=== PATIENT | male | born 2005 | race Caucasian/White ===

== ENCOUNTER 2023-05-01 21:04 | Observation (INO) | payer OTHER, SELFPAY ==
[2023-05-01 23:02] LABS: #Eosinphils 0.2 10x3/uL (0.0-0.5); #Neutrophils 7.3 10x3/uL (1.5-8.4); %Basophils 0.3 % (0.0-2.0); %Eosinophils 1.5 % (0.0-6.0); %Lymphocytes 22.7 % (18.0-47.0); %Monocytes 8.7 % (0.0-10.0); %Neutrophils 66.5 % (40.0-75.0); Hematocrit 39.1 % (38.8-50.0); Mean Corpuscular HGB CONC 33.2 g/dL (32.0-36.0); Mean Corpuscular Hemoglobin 27.8 pg (27.0-33.0); Mean Corpuscular Volume 83.5 fl (81.2-95.1); Mean Platelet Volume 10.6 fl (7.4-10.4); Platelet Count 347 10x3/uL (150-450); RBC Distribution Width 13.2 % (11.5-14.5); Red Blood Cell (RBC) Count 4.68 10x6/uL (4.32-5.72)
[2023-05-01 23:11] LABS: ALT (SGPT) 62 U/L (8-55); AST (SGOT) 34 U/L (10-45); Albumin 4.3 g/dL (3.5-5.0); Alkaline Phosphatase 98 U/L (50-130); Anion Gap 15 mmol/L (10-20); BUN (Urea Nitrogen) 12 mg/dL (8.4-21.0); Bilirubin, Total 0.7 mg/dL (0.2-1.2); Calc. Creatinine Clearance 0 mL/min (70-130); Calcium 9.7 mg/dL (7.8-10.44); Carbon Dioxide 23 mmol/L (22-29); Chloride 105 mmol/L (98-107); Estimated GFR 128; Glucose 95 mg/dL (70-105); Potassium 4.4 mmol/L (3.5-5.1); Protein, Total 8.3 g/dL (6.0-8.3); Sodium 139 mmol/L (136-145)
[2023-05-01 23:22] LABS: INR-International Normal Ratio 1.1; PTT 27.7 sec (22.0-33.0); Prothrombin Time 11.4 sec (9.5-12.1)
[2023-05-01] MEDS ORDERED: Cefepime 2 GM VIAL ONE (23:57)
[2023-05-02] MEDS ORDERED: Acetaminophen 325 MG TAB PO PRN (03:13)
[2023-05-02] MEDS ORDERED: Sodium Chloride 0.9% 1,000 ML IV SCH (03:15)
[2023-05-02 04:50] VITALS: BMI 39.5
[2023-05-02 06:14] LABS: #Eosinphils 0.2 10x3/uL (0.0-0.5); #Monocytes 0.9 10x3/uL (0.0-1.1); #Neutrophils 5.8 10x3/uL (1.5-8.4); %Basophils 0.3 % (0.0-2.0); %Eosinophils 1.9 % (0.0-6.0); %Lymphocytes 29.1 % (18.0-47.0); %Monocytes 9.5 % (0.0-10.0); %Neutrophils 58.9 % (40.0-75.0); Hematocrit 36.3 % (38.8-50.0); Hemoglobin 11.8 g/dL (13.5-17.5); Mean Corpuscular HGB CONC 32.5 g/dL (32.0-36.0); Mean Corpuscular Hemoglobin 27.4 pg (27.0-33.0); Mean Corpuscular Volume 84.2 fl (81.2-95.1); Mean Platelet Volume 10.5 fl (7.4-10.4); Platelet Count 330 10x3/uL (150-450); RBC Distribution Width 13.2 % (11.5-14.5); Red Blood Cell (RBC) Count 4.31 10x6/uL (4.32-5.72); White Blood Cell (WBC) Count 9.8 10x3/uL (3.5-10.5)
[2023-05-02 06:31] LABS: ALT (SGPT) 56 U/L (8-55); AST (SGOT) 27 U/L (10-45); Anion Gap 15 mmol/L (10-20); BUN (Urea Nitrogen) 11 mg/dL (8.4-21.0); Calc. Creatinine Clearance 276 mL/min (70-130); Calcium 9.2 mg/dL (7.8-10.44); Carbon Dioxide 24 mmol/L (22-29); Chloride 104 mmol/L (98-107); Estimated GFR 129; Glucose 97 mg/dL (70-105); Magnesium 2.2 mg/dL (1.7-2.2); Potassium 4.1 mmol/L (3.5-5.1); Sodium 139 mmol/L (136-145)
[2023-05-02 14:02] LABS: Bilirubin Neg (Negative); Blood, Urine Negative (Negative); Clarity Clear (Clear); Glucose, Urine (Dipstick) Normal (Negative); Ketone, Urine Negative (Negative); Leukocyte Negative (Negative); Nitrite Negative (Negative); Protein, Urine (Dipstick) 15 mg/dl (Neg-Trace); Specific Gravity, Urine 1.025 (1.005-1.030)
[2023-05-02 14:14] LABS: Bacteria/HPF None Seen HPF (None Seen); RBC/HPF 0-3 HPF (0-3); Squamous Epithelial None Seen HPF (0-3); WBC/HPF 0-3 HPF (0-3)
[2023-05-02 17:00] VITALS: BP 120/77; TEMP 97.7
== END 2023-05-02 18:20 | disposition home or self-care (01) ==
LOC: CSHERS 21:04 → CSHTELE 05-02 04:24
PROVIDERS: ADMIT Family Medicine; ATTEND Hospitalist
DX: D69.0 Allergic purpura (principal); E66.01 Morbid (severe) obesity due to excess calories
CPT/HCPCS: 36415; 80048; 80053; 81001; 83735; 84450; 84460; 85025; 85384; 85610; 85730; 86140; 87040; 96372; G0378; J0692; J1650; J7050